=== PATIENT | male | born 1960 | race Two or more races ===

== ENCOUNTER 2016-06-22 08:58 | Emergency (ER) | payer OTHER ==
[2016-06-22] MEDS ORDERED: CEPHALEXIN 500 MG CAPSULE ONE (09:39)
--- NOTE | 2016-06-22 09:41 | RAD ---
RIGHT FINGER 3 VIEWS HISTORY: Crushed right distal left finger chopping wood. COMPARISONS: None. TECHNIQUE: Frontal, lateral, and oblique views of the right fifth digit. ALIGNMENT: Grossly unremarkable. FRACTURE: Comminuted fracture of the distal fifth phalangeal tuft. Minor displacement of fracture fragments. DEGENERATIVE CHANGE: Prominent degeneration of the fifth distal interphalangeal joint with deformity implying remote trauma. SOFT TISSUES: Diffuse soft tissue swelling of the distal fifth digit. RADIOOPAQUE FOREIGN BODY: None. IMPRESSION: Mildly displaced comminuted fracture of the fifth distal phalanx and associated soft tissue swelling, consistent with provided history of injury. Focal degeneration of the fifth distal interphalangeal joint, suspected to relate to remote trauma.
== END 2016-06-22 10:18 | disposition home or self-care (01) ==
LOC: ED 08:58
DX: S62.636B Displaced fracture of distal phalanx of right little finger, initial encounter for open fracture (principal); E10.9 Type 1 diabetes mellitus without complications; Z79.4 Long term (current) use of insulin; W45.8XXA Other foreign body or object entering through skin, initial encounter; Y93.H9 Activity, other involving exterior property and land maintenance, building and construction; Y92.007 Garden or yard of unspecified non-institutional (private) residence as the place of occurrence of the external cause
CPT/HCPCS: 73140; 99283 ×2; A9270